=== PATIENT | male | born 1995 | race Caucasian/White ===

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

== ENCOUNTER 2017-09-02 23:22 | Emergency (ER) | payer MEDICAID ==
[~2017-09-02] VITALS: Ht 190.5 cm; Wt 59.0 kg
[~2017-09-02 23:22] MED LIST changes: +ASPIRIN 325MG325 MG PO; +PERCOCET 5/3251 EACH PO
[2017-09-02] MEDS ORDERED: TRAMADOL 50MG T50 MG PO (23:37)
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
[2017-09-03 00:15] VITALS: BP 143/91
--- OUTSIDE RECORDS SUMMARY | 2017-09-03 00:17 | External Medical Summary Rpt | CCD ---
Author Author , SHAQUILLE CORBIN Address Unknown Phone [email or web address] Providers Care Planning Associate Name Role Phone [facility] Mendoza [place], [facility] [place] Purpose Continuity of Care Document - 03-02-2010 through 2016 Problems Code Diagnosis DOS Provider Status I45.10 Unspecified 06-25-2017 right bundle-bran ch block Q89.01 Asplenia 06-25-2017 (congenital ) R00.0 Tachycardia 06-25-2017 , unspecified R06.00 Dyspnea, 06-25-2017 unspecified R07.9 Chest pain, 06-25-2017 unspecified R55 SYNCOPE AND COLLAPSE Medications Na ND Rx Da Fi Fi Am Da Di Ph RX Ph St me C No te ll ll ou ys ag ar # ys at rm s nt no ma ic us Or Da si cy ia de te s n re d 59 05 05 0 20 10 EA 22 BE Ac 76 -2 -[address] 72 SS ti 21 8- 8- 00 SI 77 ON ve 05 20 20 DE [address] 5 PH EP AR HE MA N CY A OF CY NT HI AN A ND 16 05 05 0 7. 7 EA 22 BE Ac LL 47 -2 -[address] 72 SS ti IP 70 8- 8- 0 SI 78 ON ve RE 50 20 20 DE D [address] 5 1 PH EP MG AR HE MA N TA CY A BL ET OF CY NT HI AN A TR 45 05 05 2 30 7 EA 22 BE Ac IA 80 -2 -[address] 72 SS ti MC 20 8- 8- 00 SI 79 ON ve IN 04 20 20 DE OL [address] ON 5 PH EP E AR HE 0. MA N 5% CY A OI OF NT ME CY NT NT HI AN A CE 00 03 03 1 30 10 EA 21 MC Ac PH 09 -2 -[address] 86 KE ti AL 33 6- 6- 00 SI 52 ND ve EX 14 20 20 DE E IN 50 11 11 JR 1 PH 25 AR WI 0 MA LL MG CY IA M CA OF F PS UL CY E NT HI AN A ME 00 09 09 0 21 6 EA 19 MC Ac TH 78 -1 -[address] 11 KE ti YL 15 4- 4- 00 SI 98 ND ve UT 02 20 20 DE E ED 20 10 10 JR NI 7 PH SO AR WI LO MA LL NE CY IA 4 M OF F MG CY DO NT SE HI PK AN A 00 07 05 6 30 20 EA 13 CO Ac 03 -0 -[address] 43 MM ti 70 9- 9 00 SI 94 UN ve 24 20 20 DE IT 23 09 10 Y 0 PH AL AR LE MA RG CY Y & OF TH CY MA NT HI PS AN C A 00 07 05 6 30 30 EA 13 CO Ac 09 -0 -[address] 43 MM ti 51 9- 9 00 SI 95 UN ve 20 20 20 DE IT 00 09 10 Y 6 PH AL AR LE MA RG CY Y & OF TH CY MA NT HI PS AN C A 00 07 05 6 30 20 EA 13 MA Ac 03 -0 -[address] 43 SH ti 70 9 9 00 SI 94 BU ve 24 20 20 DE RN 23 09 10 0 PH AM AR Y MA B CY OF CY NT HI AN A 00 07 05 6 30 30 EA 13 MA Ac 09 -0 -[address] 43 SH ti 51 9- 9- 00 SI 95 BU ve 20 20 20 DE RN 00 09 10 6 PH AM AR Y MA B CY OF CY NT HI AN A Results Labs Lab Lab Date Result Refere Interp Status Commen Order Detail nces retati t Range on D dimer FEU PPP-mCnc (06-20-2017 15:50) D dimer 0.31 <0.51 complet FEU 017 mg/L ed PPP-mCn 15:50 FEU c
--- OUTSIDE RECORDS SUMMARY | 2017-09-03 00:17 | External Medical Summary Rpt | CCD ---
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 7 EA [...] AL 33 6- 6- 00 SI 52 IL ve EX 14 20 20 DE E IN 50 11 11 JR 1 PH 25 AR WI 0 MA LL MG CY IA M CA OF F PS UL CY E NT HI AN A ME 00 09 09 0 21 6 EA 19 MC Ac TH 78 -1 -[address] 11 KE ti YL 15 4- 4- 00 SI 98 IL ve ID 02 20 20 DE E ED 20 [...]
--- OUTSIDE RECORDS SUMMARY | 2017-09-03 00:21 | External Medical Summary Rpt | CCD ---
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 8- 00 SI 03 ON ve 23 20 20 0 DE [address] 6 PH EP AR HE MA N CY A OF CY NT HI AN A 67 12 12 00 10 10 EA 10 VARGAS Ac 25 -0 -[address] 59 RV ti 30 8- 8- 00 SI 29 EY ve 00 20 20 DE 76 08 08 TATIANNA 0 PH DI AR MA CY OF CY NT HI AN A PO 51 11 12 00 52 30 EA 10 VARGAS Ac LY 99 -2 -[address] 40 RV ti ET 10 4- 4- 00 SI 63 EY ve HY 45 20 20 0 DE LE 75 08 08 TATIANNA NE 7 PH DI AR GL MA YC CY OL OF 33 CY 50 NT HI PO AN WD A TR 00 11 12 00 80 4 EA 10 CO Ac IA 16 -2 -[address] 43 MM ti MC 80 5- 4- 00 SI 05 UN ve IN 00 20 20 DE IT OL 68 08 08 Y ON 0 PH AL E AR LE 0. MA RG 1% CY Y & OI OF NT CY TH ME NT MA NT HI AN PS A C 59 11 12 00 60 30 EA 10 CO Ac 70 -2 -[address] 43 MM ti 20 5- 4- 00 SI 03 UN ve 81 20 20 DE IT 90 08 08 Y 1 PH AL AR LE MA RG CY Y & OF CY TH NT MA HI AN PS A C NA 00 11 12 00 17 17 EA 10 CO Ac SO 08 -2 -[address] 43 MM ti NE 51 5- 4- 00 SI 02 UN ve X 28 20 20 DE IT 50 80 08 08 Y 1 PH AL AR LE G MA RG NA CY Y SA & L OF SP CY TH RA NT MA Y HI AN PS A C 00 10 10 00 15 10 EA 99 No Ac 02 -1 -[address] 83 t ti 96 2- 3- 00 SI 43 Av ve 09 20 20 0 DE ai 02 08 08 la 2 PH bl AR e MA CY OF CY NT HI AN A 63 07 08 [address] Ac 30 -2 -1 .0 TE 32 EP ti 40 8- 4- 00 20 HE ve 76 20 20 AI NS 12 08 08 D 0 PH KE AR M N #3 C 93 8 NA 00 05 08 00 17 30 RI 73 CO Ac SO 08 -1 -0 .0 TE 31 MM ti NE 51 3- 1- 00 77 UN ve X 28 20 20 AI IT 50 80 08 08 D Y 1 PH AL AR LE G M RG NA #3 Y SA 93 & L 8 SP TH RA MA Y PS C 59 05 08 01 60 30 RI 73 CO Ac 70 -1 -0 .0 TE 30 MM ti 20 2- 1- 00 17 UN ve 81 20 20 AI IT 90 08 08 D Y 1 PH AL AR LE M RG #3 Y 93 & 8 TH MA PS C CE 64 05 06 00 20 10 RI 73 CO Ac FU 67 -2 -0 .0 TE 52 MM ti RO 90 9- 5- 00 62 UN ve XI 92 20 20 AI IT ME 10 08 08 D Y 1 PH AL AX AR LE ET M RG IL #3 Y 93 & 25 8 0 TH MG MA TA PS B C ME 00 05 06 00 21 6 RI 73 CO Ac TH 60 -2 -0 .0 TE 52 MM ti YL 34 9- 5- 00 63 UN ve WY 59 20 20 AI IT ED 31 08 08 D Y NI 5 PH AL SO AR LE LO M RG NE #3 Y 4 93 & 8 MG TH MA DO SE PS PK C 59 05 05 00 60 30 RI 73 No Ac 70 -1 -2 .0 TE 30 t ti 20 2- 2- 00 17 Av ve 81 20 20 AI ai 90 08 08 D la 1 PH bl AR e M #3 93 8 AZ 59 05 05 00 6. 5 RI 73 No Ac IT 76 -1 -2 00 TE 31 t ti HR 23 3- 2- 0 78 Av ve OM 06 20 20 AI ai YC 00 08 08 D la IN 1 PH bl AR e 25 M 0 #3 MG 93 8 TA BL ET NA 00 06 05 02 17 25 RI 68 No Ac SO 08 -0 -2 .0 TE 27 t ti NE 51 5- 2- 00 61 Av ve X 28 20 20 AI ai 50 80 07 08 D la 1 PH bl MC AR e G M NA #3 SA 93 L 8 SP RA Y 59 06 04 06 60 30 RI 68 No Ac 70 -0 -0 .0 TE 27 t ti 20 5- 7- 00 67 Av ve 81 20 20 AI ai 90 07 08 D la 1 PH bl AR e M #3 93 8 00 02 03 00 3. 7 RI 71 No Ac 16 -0 -2 50 TE 83 t ti 80 4- 6- 0 05 Av ve 07 20 20 AI ai 03 08 08 D la 8 PH bl AR e M #3 93 8 59 06 03 05 60 30 RI 68 No Ac 70 -0 -2 .0 TE 27 t ti 20 5- 5- 00 67 Av ve 81 20 20 AI ai 90 07 08 D la 1 PH bl AR e M #3 93 8 Procedures Procedure DOS Code Location Performer Comment REPOS RT [id number] [facility] SHAFT E E INTRAMED [facility] IF DEVICE OPEN RESECTION [id number] [facility] SPLEEN E E [facility] APPROACH REPOSITIO [id number] [facility] RT 7 [facility] FEMORAL E E SHAFT EXT [facility] FIX DEVICE OPEN REPAIR [id number] [facility] OPEN E E [facility]ACH [facility]ALS [facility]PITALS REPAIR [id number] [facility] E [facility] Encounters Encounter Start End Date Code Location Performer Type Date [facility] - [facility] OUTPATIEN E T [facility] - 7 7 [facility] OUTPATIEN INC T [facility] 7 7 [facility] OUTPATIEN [facility] - 7 7 [facility] OUTPATIEN [facility] 7 7 [facility] OUTPATIEN [facility] - 7 7 [facility] OUTPATIEN [facility] - 7 7 [facility] OUTPATIEN [facility] - 7 7 [facility] OUTPATIEN [facility] - 7 7 [facility] OUTPATIEN [facility] - 7 7 [facility] INPATIENT [facility] - 5 5 [facility] OUTPATIEN [facility] - 5 5 [facility] OUTPATIEN [facility] - 5 5 [facility] OUTPATIEN [facility] - 5 5 [facility] OUTPATIEN [facility] - 5 5 [facility] OUTPATIEN [facility] - 5 5 [facility] OUTPATIEN [facility] - 3 3 [facility]PATIEN [facility] - 3 3 [facility] OUTPATIEN [facility]IVERS[facility] - 2 2 Y [facility] - 1 1 [facility]PATIEN [facility] - 1 1 [facility]PATI[facility] - 1 1 [facility] - 1 1 [facility]PATI[facility] - 9 9 [facility]PATIEN [facility] - 9 9 [facility] OUTPATIEN [facility] - 9 9 [facility] OUTPATIEN [facility] - 9 9 [facility] OUTPATIEN [facility] - 9 9 [facility]PATIEN [facility] - 9 9 [facility]PATI[facility] - 9 9 [facility] - 9 9 [facility] - 9 9 [facility] - 9 9 [facility] - 9 9 [facility]PATI[facility] - 8 8 [facility] - 8 8 [facility] - 8 8 [facility] - 8 8 [facility]
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
--- OUTSIDE RECORDS SUMMARY | 2017-09-03 00:23 | External Medical Summary Rpt | CCD ---
Author Author , SHAQUILLE Organization [facility]ILLE Address Unknown Phone [email or web address] Support Name Relationship Address Phone AGGIE, Next Of Kin Unknown Unavailable [facility] Immunization Name Date Rout CVX Reac Dose Comm Prov Is Faci e tion ent ider Refu lity Give sed n MCV4 01-2 136 0.5 Hist [facility] O/MC 6-20 mL oric 1 1 V4P 17 al (MEN Info VEO) rmat ion - Sour ce Unsp ecif ied PCV1 01-2 133 0.5 Hist [facility] 3 5-20 mL oric 1 1 17 al Info rmat ion - Sour ce Unsp ecif ied Hib 01-2 49 0.5 Hist [facility] (PRP 4-20 mL oric 1 1 -OMP 17 al ; Info pedv rmat ax ion - Sour ce Unsp ecif ied Meni 01-2 0.5 Hist [facility] mamie 4-20 mL oric 1 1 occa 17 al l B Info (Berta rmat sero ion ) - Sour ce Unsp ecif ied Tdap 01-2 115 0.5 Hist [facility] , 2-20 mL oric 1 1 Adso 17 al rbed Info rmat ion - Sour ce Unsp ecif ied Tdap 02-0 115 0.50 Hist [facility] No H149 , 2-20 mL oric E Adso 16 al ANDR rbed Info EA rmat ion - Sour ce Unsp ecif ied Vari 02-0 21 0.50 Hist [facility] No H149 cell 2-20 mL oric E a 16 al ANDR Info EA rmat ion - Sour ce Unsp ecif ied HPV, 01-2 137 999 Hist [place] No [place] UF 1-20 oric 15 al Info rmat ion - Sour ce Unsp ecif ied HPV, 11-1 137 999 Hist [place] No [place] UF 2-20 oric 14 al Info rmat ion - Sour ce Unsp ecif ied Tdap 04-1 115 999 Hist H149 No H149 , 8-20 oric Adso 11 al rbed Info rmat ion - Sour ce Unsp ecif ied Meni 04-1 32 999 Hist H149 No H149 mamie 8-20 oric occa 11 al l Info MPSV rmat 4 ion - Sour ce Unsp ecif ied DTaP 10-0 107 999 Hist H149 No H149 , UF 2-20 oric 02 al Info rmat ion - Sour ce Unsp ecif ied Brennan 04-1 10 999 Hist H149 No H149 o-IP 2-20 oric V 02 al Info rmat ion - Sour ce Unsp ecif ied MMR 04-1 3 999 Hist H149 No H149 2-20 oric 02 al Info rmat ion - Sour ce Unsp ecif ied DTaP 07-2 107 999 Hist H149 No H149 , UF 1-19 oric 99 al Info rmat ion - Sour ce Unsp ecif ied MMR 04-2 3 999 Hist H149 No H149 0-19 oric 99 al Info rmat ion - Sour ce Unsp ecif ied Vari 04-2 21 999 Hist H149 No H149 cell 0-19 oric a 99 al Info rmat ion - Sour ce Unsp ecif ied Hib 03-1 49 999 Hist H149 No H149 (PRP 9-19 oric -OMP 99 al ; Info pedv rmat ax ion - Sour ce Unsp ecif ied Hep 03-1 8 999 Hist H149 No H149 B, 9-19 oric ped/ 99 al adol Info rmat ion - Sour ce Unsp ecif ied Brennan 03-1 2 999 Hist H149 No H149 o-OP 9-19 oric V 99 al Info rmat ion - Sour ce Unsp ecif ied DTaP 10-0 107 999 Hist H149 No H149 , UF 2-19 oric 98 al Info rmat ion - Sour ce Unsp ecif ied Hib, 07-2 17 999 Hist H149 No H149 UF 0-19 oric 98 al Info rmat ion - Sour ce Unsp ecif ied DTaP 07-2 107 999 Hist H149 No H149 , UF 0-19 oric 98 al Info rmat ion - Sour ce Unsp ecif ied Brennan 07-2 10 999 Hist H149 No H149 o-IP 0-19 oric V 98 al Info rmat ion - Sour ce Unsp ecif ied Brennan 05-1 10 999 Hist H149 No H149 o-IP 9-19 oric V 98 al Info rmat ion - Sour ce Unsp ecif ied Hib, 05-1 17 999 Hist H149 No H149 UF 9- oric 98 al Info rmat ion - Sour ce Unsp ecif ied DTaP 05- 107 999 Hist H149 No H149 , UF 9-19 oric 98 al Info rmat ion - Sour ce Unsp ecif ied Hep 04-2 Subc 8 999 Hist H149 No H149 B, 0-19 utan oric ped/ 98 eous al adol Info rmat ion - Sour ce Unsp ecif ied Hep 03-1 Intr 8 999 Hist [place] No [place] B, 7-19 amus oric ped/ 98 cula al adol r Info rmat ion - Sour ce Unsp ecif ied
--- OUTSIDE RECORDS SUMMARY | 2017-09-03 00:23 | External Medical Summary Rpt ---
Author Author SHAQUILLE Peralta, SHAQUILLE Peralta Organization [employer] Address Unknown Phone Unavailable
--- OUTSIDE RECORDS SUMMARY | 2017-09-03 00:23 | External Medical Summary Rpt | CCD ---
Author Author , SHAQUILLE Organization SHAQUILLE Address Unknown Phone [email or web address] Support Name Relationship Address Phone AGGIE, Next [...] ecif ied HPV, 01-2 137 999 Hist [place] No [place] UF 1-20 oric 15 al Info rmat ion - Sour ce Unsp ecif ied HPV, 11-1 137 999 Hist [place] No [place] UF 2-20 oric 14 al Info rmat [...] ied Hep 03-1 Intr 8 999 Hist [place] No [place] B, 7-19 amus oric ped/ 98 cula al adol r Info rmat ion - Sour ce Unsp ecif ied
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
== END 2017-09-03 00:16 | disposition home or self-care (01) ==
LOC: ER 23:22
DX: S83.91XA Sprain of unspecified site of right knee, initial encounter (principal); F17.210 Nicotine dependence, cigarettes, uncomplicated; K21.9 Gastro-esophageal reflux disease without esophagitis; Z02.89 Encounter for other administrative examinations